=== PATIENT | female | born 1960 | race Two or more races ===

== ENCOUNTER 2016-11-14 11:38 | Emergency (ER) | payer OTHER, SELFPAY ==
[~2016-11-14] VITALS: Ht 154.9 cm; Wt 83.0 kg
[2016-11-14] MEDS ORDERED: BP pill (11:48)
[2016-11-14] MEDS ORDERED: ASPIR 8181 MG ORAL (11:48)
[2016-11-14] MEDS ORDERED: PredniSONE 20mg tab ORAL ONE (12:00)
--- NOTE | 2016-11-14 12:05 | Emergency Room Report ---
History of Present Illness General Chief Complaint: Skin Rash/Abscess Source: Patient Present Illness HPI Patient presents with a diffuse rash over the facial area Started last night or this morning She feels that the area is puritic in nature Denies any new makeup denies any contact with any allergen Denies any chest pain or shortness of breath Denies any back or flank pain Denies any recent immunizations or medication Allergies: Coded Allergies: No Known Allergies (Unverified , 11/14/16) Patient History Past Medical History: see triage record Pertinent Family History: none Reviewed Nursing Documentation: PMH: Agreed, PSxH: Agreed Nursing Documentation-PMH Hx Hypertension: Yes Review of Systems All Other Systems: negative except mentioned in HPI Physical Exam Vital Signs Date Time Temp Pulse Resp B/P Pulse Ox O2 Delivery O2 Flow Rate FiO2 11/14/16 11:43 98.1 63 16 163/89 99 Room Air Sp02 EP Interpretation: reviewed, normal General Appearance: well appearing, no apparent distress Head: normocephalic, atraumatic Eyes: bilateral eye EOMI, bilateral eye PERRL ENT: hearing grossly normal, normal pharynx, TMs + canals normal, uvula midline , other Neck: full range of motion, supple, no meningismus, no bony tend Respiratory: lungs clear, normal breath sounds, no rhonchi, no respiratory distress, no retraction, no accessory muscle use Cardiovascular #1: normal peripheral pulses, regular rate, rhythm, no edema, no gallop, no JVD, no murmur Musculoskeletal: normal inspection Neurologic: oriented x3, responsive, health researcher III-XII nml as tested, motor strength/ tone normal, sensory intact Psychiatric: mood/affect normal Skin: other - There is a fine erythematous rash involving the fore head, facial region generally. There is an urticarial component to it, no signs of malar rash, no signs of dermatomal pathology, airway is patent no stridor Lymphatic: normal inspection, no adenopathy Medical Decision Making Diagnostic Impression: Primary Impression: Rash and other nonspecific skin eruption ER Course I feel the patient's reaction here is likely contacted nature she was provided medication here Her symptoms however he began to improve And the patient will have initial conservative outpatient trial Last Vital Signs Date Time Temp Pulse Resp B/P Pulse Ox O2 Delivery O2 Flow Rate FiO2 11/14/16 11:43 98.1 63 16 163/89 99 Room Air Status: improved Disposition: HOME, SELF-CARE Condition: Improved Scripts Ranitidine Hcl* (ZANTAC*) 150 Mg Tablet 150 MG ORAL TWICE A DAY, #30 TAB Prov: JORDAN ABDUL D.O. 11/14/16 Diphenhydramine Hcl* (BENADRYL*) 25 Mg Capsule 25 MG ORAL Q6H Y for Itching, #30 CAP Prov: JORDAN ABDUL D.O. 11/14/16 Prednisone* (PREDNISONE*) 20 Mg Tablet 20 MG ORAL BID, #8 TAB Prov: JORDAN ABDUL D.O. 11/14/16 Additional Instructions: Patient is provided with the discharge instructions notified to follow up with primary doctor in the next 2-3 days otherwise return to the er with any worsening symptoms. Please note that this report is being documented using [employer] technology. This can lead to erroneous entry secondary to incorrect interpretation by the dictating instrument. JORDAN ABDUL D.O. Nov 14, 2016 12:05
[2016-11-14] MEDS ORDERED: BENADRYL25 MG ORAL (12:07)
[2016-11-14] MEDS ORDERED: PREDNISONE20 MG ORAL (12:07)
[2016-11-14] MEDS ORDERED: RANITIDINE HCL150 MG ORAL (12:07)
[2016-11-14 12:27] VITALS: BP 157/78
[2016-11-14 12:55] VITALS: BP 157/78
== END 2016-11-14 12:56 | disposition home or self-care (01) ==
LOC: EMR 12:26
DX: R21 Rash and other nonspecific skin eruption (principal); I10 Essential (primary) hypertension
CPT/HCPCS: 99284

== ENCOUNTER 2017-10-09 00:15 | Emergency (ER) | payer OTHER ==
[~2017-10-09] VITALS: Ht 157.5 cm; Wt 84.8 kg
[~2017-10-09 00:15] MED LIST: ASPIR 8181 MG ORAL; BENADRYL25 MG ORAL; BP pill; PREDNISONE20 MG ORAL; RANITIDINE HCL150 MG ORAL
[2017-10-09] MEDS ORDERED: METFORMIN HCL500 M5 PO (00:27)
[2017-10-09] MEDS ORDERED: BENAZEPRIL HCL10 MG ORAL (00:27)
[2017-10-09 00:35] VITALS: BP 115/79
[2017-10-09] MEDS ORDERED: AMOXICILLIN500 MG ORAL (00:41)
[2017-10-09] MEDS ORDERED: TYLENOL EXTRA500 MG ORAL (00:41)
[2017-10-09 00:49] VITALS: BP 115/79
--- NOTE | 2017-10-09 01:52 | Emergency Room Report ---
History of Present Illness General Chief Complaint: Upper Respiratory Illness Source: Patient Present Illness HPI 57-year-old female presents ED complaining of cough and bodyaches x1 day. Afebrile in triage. Cough is productive. States she feels weak. Denies chest pain or shortness of breath. Denies sick contacts or recent travel. No other aggravating relieving factors. Denies any other associated symptoms Allergies: Coded Allergies: No Known Allergies (Unverified , 11/14/16) Patient History Past Medical History: DM, HTN Past Surgical History: none Pertinent Family History: none Social History: Denies: smoking, alcohol use, drug use Now: No Immunizations: UTD Reviewed Nursing Documentation: PMH: Agreed, PSxH: Agreed Nursing Documentation-PMH Past Medical History: No History, Except For Hx Hypertension: Yes Hx Diabetes: Yes Review of Systems All Other Systems: negative except mentioned in HPI Physical Exam Vital Signs Date Time Temp Pulse Resp B/P (MAP) Pulse Ox O2 Delivery O2 Flow Rate FiO2 10/09/17 00:20 99.7 110 17 115/79 98 Room Air Sp02 EP Interpretation: reviewed, normal General Appearance: no apparent distress, alert, GCS 15, non-toxic Head: normocephalic Eyes: bilateral eye normal inspection, bilateral eye PERRL ENT: hearing grossly normal, normal pharynx, no angioedema, normal voice Neck: normal inspection Respiratory: crackles Cardiovascular #1: regular rate, rhythm, no edema Gastrointestinal: normal bowel sounds, non tender, soft, non-distended, no guarding, no rebound Rectal: deferred Genitourinary: no CVA tenderness Musculoskeletal: normal inspection Neurologic: alert, oriented x3, responsive, motor strength/tone normal, sensory intact, speech normal Psychiatric: normal inspection Skin: normal inspection Lymphatic: normal inspection Medical Decision Making Diagnostic Impression: Primary Impression: Atypical pneumonia ER Course Hospital Course 57 yo F presents to ED c/o cough, bodyaches Differential diagnoses include: URI, pharyngitis, otitis media, asthma Clinical course Patient placed on stretcher. After initial history, physical exam reveals a middle aged female in no acute distress. Bilateral TM unremarkable. No pharyngeal erythema. No tonsillar exudates. No lymphadenopathy. some crackles in lower lung bases clinically we will treat as atypical pneumonia Diagnosis - atypical pneumonia Stable and discharged home with Rx Amoxicillin, Tylenol. Instructed to followup with PMD. Return to ED if symptoms recur or worsen Last Vital Signs Date Time Temp Pulse Resp B/P (MAP) Pulse Ox O2 Delivery O2 Flow Rate FiO2 10/09/17 00:49 99.7 110 17 115/79 98 Room Air Status: improved Disposition: HOME, SELF-CARE Condition: Stable Scripts Acetaminophen* (TYLENOL EXTRA STRENGTH*) 500 Mg Tablet 500 MG ORAL Q8H Y for Prn Headache/Temp > 101, #30 TAB 0 Refills Prov: DEVON GARCIA M.D. 10/09/17 Amoxicillin* (AMOXIL*) 500 Mg Capsule 500 MG ORAL THREE TIMES A DAY, #21 CAP Prov: DEVON GARCIA M.D. 10/09/17 Referrals: NOT CHOSEN IPA/,REFERRING Patient Instructions: Community-Acquired Pneumonia, Adult, [id number] DEVON GARCIA M.D. Oct 09, 2017 01:52
== END 2017-10-09 00:49 | disposition home or self-care (01) ==
LOC: EMR 00:41
DX: J18.9 Pneumonia, unspecified organism (principal); E11.9 Type 2 diabetes mellitus without complications; I10 Essential (primary) hypertension
CPT/HCPCS: 99283

== ENCOUNTER 2018-05-01 10:30 | Emergency (ER) | payer OTHER ==
[~2018-05-01] VITALS: Ht 152.4 cm; Wt 84.8 kg
[~2018-05-01 10:30] MED LIST changes: +AMOXICILLIN500 MG ORAL; +BENAZEPRIL HCL10 MG ORAL; +METFORMIN HCL500 M5 PO; +TYLENOL EXTRA500 MG ORAL
[2018-05-01] MEDS ORDERED: Acetaminophen 500mg (ES) tab ORAL ONE (11:00)
[2018-05-01] MEDS ORDERED: TYLENOL EXTRA500 MG ORAL (11:01)
--- NOTE | 2018-05-01 11:07 | Emergency Room Report ---
History of Present Illness General Chief Complaint: Lower Extremity Injury Source: Patient Present Illness HPI Patient 57-year-old female who presented after increased lower extremity pain. Patient reports having prior history of diabetes. She had been the reportedly having pain for proximal 2 months. Patient pain was worse with ambulation. She prior history of ingrown toenail and previous toenail resection. This had recurred. She not been having any fever. The pain was to the left great toe. The pain is described as throbbing sensation. As she had not been having any drainage or increased redness. Allergies: Coded Allergies: No Known Allergies (Unverified , 11/14/16) Patient History Past Medical History: see triage record, DM, HTN Last Menstrual Period: na Reviewed Nursing Documentation: PMH: Agreed; PSxH: Agreed Nursing Documentation-PMH Past Medical History: No History, Except For Hx Hypertension: Yes Hx Diabetes: Yes Review of Systems All Other Systems: negative except mentioned in HPI Physical Exam Vital Signs Date Time Temp Pulse Resp B/P (MAP) Pulse Ox O2 Delivery O2 Flow Rate FiO2 05/01/18 10:45 97.9 66 18 125/80 98 Room Air 97.9 General Appearance: well appearing, no apparent distress, alert, GCS 15 Head: normocephalic, atraumatic ENT: hearing grossly normal, normal voice Neck: full range of motion, supple Respiratory: no respiratory distress, speaking full sentences Musculoskeletal: no calf tenderness, other - left great toe with ingrown nail no erythema or exudate Neurologic: normal gait Psychiatric: mood/affect normal Skin: no rash Medical Decision Making Diagnostic Impression: Primary Impression: Ingrown toenail ER Course Patient presented for toe pain. Differential diagnosis included wasn't limited to osteomyelitis, fracture, ingrown toenail, contusion, gouty arthritis among others. Patient has a benign exam and does not appear to require any further imaging or laboratory testing at this time. The patient does not appear to require any surgical intervention for her toenail this time. The patient was advised follow-up with podiatry. She was given prescription for Tylenol advised to follow-up with primary care physician for podiatry referral. Patient is advised to return if any worsening condition or if any changes in status that are concerning. This report is dictated with [employer] network technology instructor software which may occasionally lead to discrepancies related to use of this software. Last Vital Signs Date Time Temp Pulse Resp B/P (MAP) Pulse Ox O2 Delivery O2 Flow Rate FiO2 05/01/18 10:45 97.9 66 18 125/80 98 Room Air 97.9 Status: improved Disposition: HOME, SELF-CARE Condition: Stable Scripts Acetaminophen* (TYLENOL EXTRA STRENGTH*) 500 Mg Tablet 500 MG ORAL Q8H PRN for Prn Headache/Temp > 101, #30 TAB 0 Refills Prov: Matt Mancera MD 05/01/18 Patient Instructions: Matt Segovia MD May 01, 2018 11:07
[2018-05-01 11:10] VITALS: BP 125/80
== END 2018-05-01 11:27 | disposition home or self-care (01) ==
LOC: EMR 11:05
DX: L60.0 Ingrowing nail (principal); E11.9 Type 2 diabetes mellitus without complications; I10 Essential (primary) hypertension
CPT/HCPCS: 99283